=== PATIENT | male | born 1960 | race Asian ===

== ENCOUNTER 2025-04-20 19:29 | Emergency (ER) | payer BC, OTHER ==
[~2025-04-20] VITALS: Ht 172.7 cm; Wt 101.7 kg
[~2025-04-20 19:29] MED LIST: IOHEXOL 300 MG/ML 100 ML VIAL ONE
[2025-04-20 19:38] LABS: PLATELET COUNT (AUTO) 172 K/uL (150-450); RED BLOOD CELL COUNT(AUTO) 4.46 MIL/uL (4.50-5.90); RED CELL DISTRIBUTION WIDTH 14.2 % (11.5-14.5); WHITE BLOOD COUNT (AUTO) 6.1 K/uL (4.5-11.0)
[2025-04-20 19:48] LABS: CALCIUM, TOTAL 8.6 mg/dL (8.8-10.5); CREATININE 1.03 mg/dL (0.60-1.30); GLOMERULAR FILTR. RATE CALC > 60 mL/min (>60); GLUCOSE,RANDOM 105 mg/dL (70-110); SODIUM SERUM 140 mmol/L (136-145); UREA NITROGEN, BLOOD 15 mg/dL (7-18)
[2025-04-20 19:53] LABS: ASPARTATE AMINOTRANSFERASE 23 U/L (15-37); CHOL/HDL RATIO 1.7 (4.2-7.3); LDL CHOL (CALC.) 40 mg/dL (0-130); TOTAL PROTEIN, SERUM 6.3 g/dL (6.4-8.2)
[2025-04-20 19:55] LABS: TROPONIN I-HIGH SENSITIVITY 15 ng/L (<76)
[2025-04-20 20:25] VITALS: TEMP 98.8
[2025-04-20] MEDS: TENECTEPLASE 50 MG/10 ML KIT IVP ONE (20:25)
[2025-04-20 20:54] LABS: APPEARANCE,URINE CLEAR (CLEAR); GLUCOSE, URINE (UA) NEGATIVE (NEGATIVE); LEUKOCYTE ESTERASE ,URINE NEGATIVE (NEGATIVE); NITRATE,URINE NEGATIVE (NEGATIVE); OCCULT BLOOD,URINE NEGATIVE (NEGATIVE); PH,URINE DRUG SCREEN 7.0 (5.0-8.0); SPECIFIC GRAVITIY, URINE 1.030 (1.003-1.030)
[2025-04-20 21:00] LABS: ALCOHOL, URINE DRUG SCREEN NEGATIVE (NEGATIVE); AMPHET/METH SCREEN,URINE NEGATIVE (NEGATIVE); BARBITURATE SCREEN, URINE NEGATIVE (NEGATIVE); CANNABINOID SCREEN,URINE NEGATIVE (NEGATIVE); COCAINE SCREEN,URINE NEGATIVE (NEGATIVE); METHADONE SCREEN, URINE NEGATIVE (NEGATIVE)
[2025-04-20 21:36] LABS: SQUAMOUS EPITHELIAL CELL,UR Few /LPF (None Seen)
[2025-04-20 21:40] VITALS: BP 129/72; PULSE 71; RESP 13; O2SAT 95
== END 2025-04-21 00:02 | disposition short-term general hospital (02) ==
LOC: EMS 19:29
DX: I63.9 Cerebral infarction, unspecified (principal); Z86.73 Personal history of transient ischemic attack (TIA), and cerebral infarction without residual deficits; Z79.899 Other long term (current) drug therapy
CPT/HCPCS: 99291; 70496; 37195; 96374; 71045; 80061; 80053; 81001; 82962; 83036; 84484; 85025; 85610; 85730; 86850; 86900; 86901; 36415; 70498; 99292; 93005; 80307; 70450; J3101; Q9967; 82948